=== PATIENT | female | born 1960 | race Caucasian/White ===

== ENCOUNTER → 2019-10-26 | Outpatient (CLI) | payer MEDICARE ==
--- NOTE | 2019-10-26 13:15 | P.STRESS ---
- Stress Test Note Stress Test Results/Findings: Exam Performed: stress test Exam Date: 10/26/19 Reason for Exam: DYSPNEA ON EXERTION, HYPERLIPIDEMIA Height: 5 ft Weight: 93 kg Protocol: YAN Stage: 1 Duration of Exercise: 3:59 MINUTES Resting Heart Rate: 80 Resting Blood Pressure: 121/76 Maximum Achieved Heart Rate: 121 Maximum Achieved Blood Pressure: 137/81 85% PMHR: 136 100% PMHR: 160 METS: 5.0 Technologist Comment: PATIENT DID NOT REACH TARGET HEARTRATE Stress Test Results/Findings: Patient underwent exercise stress EKG with a Yan protocol treadmill stress test. Patient exercised into Stage 2 for a total of 3 minutes 59 seconds reaching a total of 5.0 METS. Test was terminated secondary to symptoms of shortness of breath, lightheadedness and legs hurting. Patient's maximum heart rate was 121 which represented 76 % age-predicted maximum heart rate. Stress EKG findings: At baseline patient's EKG showed normal sinus rhythm with a heart rate of 80 bpm, normal axis, T-wave flattening in aVL. At peak exercise, EKG showed nonspecific 0.[address] depressions in the inferior leads. Conclusions: 1. Nondiagnostic stress EKG given inability to reach 85% age-predicted maximum heart rate. 2. Poor exercise capacity.
== END | disposition home or self-care (01) ==
LOC: RADNMMAIN 10:15
PROVIDERS: ATTEND Family Medicine
DX: R06.00 Dyspnea, unspecified (principal); E78.5 Hyperlipidemia, unspecified
CPT/HCPCS: 93017

== ENCOUNTER → 2020-02-06 | Outpatient (CLI) | payer MEDICARE ==
--- NOTE | 2020-02-06 16:03 | CTL ---
EXAMINATION TYPE: CT Low Dose Lung DATE OF EXAM ORDERED: 02/06/2020 HISTORY: Long-term tobacco use. Lung cancer screening CT DLP: 179.[address] CTDI: 5.5 mGy Automated exposure control for dose reduction was used. SCREENING VISIT: Initial study COMPARISON: Chest x-ray July 05, 2015 TECHNIQUE: Low dose computed tomography scan was performed through the chest at 1 mm thick sections a nd reconstructed images in the coronal plane at [address] DIAGNOSTIC QUALITY: Satisfactory FINDINGS: LUNG NODULES: None. LUNGS: COPD: Severity: Mild to Minimal Fibrosis: Severity: Mild bibasilar Lymph nodes: No greater than 1 cm Other findings: None BILATERAL PLEURAL SPACE: Effusion: None Calcification: None Thickening: None Pneumothorax: None HEART: Heart Size: Normal Coronary calcification: Mild Pericardial effusion: Minimal OTHER FINDINGS: Upper abdomen: None. Bony thorax: Mild Multilevel spurring. Slight underlying scoliotic curvature. Supraclavicular region: No suspicious abnormality. Other: None. IMPRESSION: No suspicious nodules. CT LUNG RAD AND CT CHEST RECOMMENDATION: Lung-Rad 1 Negative: Continue annual screening with LDCT in 12 months. S Modifier (other clinically significant findings): None
== END | disposition home or self-care (01) ==
LOC: RADCTMAIN 15:29
PROVIDERS: ATTEND Family Medicine
DX: Z12.2 Encounter for screening for malignant neoplasm of respiratory organs (principal); F17.210 Nicotine dependence, cigarettes, uncomplicated